=== PATIENT | female | born 1950 | race Caucasian/White ===

== ENCOUNTER → 2016-08-18 | Outpatient (CLI) | payer MEDICARE, OTHER | LOC: MAMO 07-16 08:14 | DX: Z12.31 Encounter for screening mammogram for malignant neoplasm of breast (principal) | CPT/HCPCS: G0202 ==

== ENCOUNTER → 2020-12-05 | Outpatient (CLI) | payer MEDICARE, OTHER ==
[~2020-12-05] MED LIST: ALENDRONATE SOD70 MG PO; BUMETANIDE0.5 MG PO; CALCIUM 600 MG1 EAC1 PO; CALCIUM CARBON600 M1 PO; COREG 3.125M3.125 MG PO; HALDOL 1 MG TAB1 MG PO; MIDODRINE HCL5 MG PO; MONTELUKAST SOD10 MG PO; OMEPRAZOLE40 MG PO; PEPCID40 MG PO; QUETIAPINE FUM100 MG PO; VENLAFAXINE HC150 MG PO; VITAMIN B6100 MG/2.5 PO; VITAMIN D21250 MCG PO; WELLBUTRIN XL300 M1 PO; ZYRTEC10 MG PO
== END ==
LOC: HEART CORB 08:45
DX: I50.22 Chronic systolic (congestive) heart failure (principal); I34.0 Nonrheumatic mitral (valve) insufficiency

== ENCOUNTER → 2021-04-25 | Outpatient (CLI) | payer MEDICARE, OTHER | LOC: HEART CORB 09:43 | DX: I50.22 Chronic systolic (congestive) heart failure (principal); I34.0 Nonrheumatic mitral (valve) insufficiency ==